=== PATIENT | female | born 1980 | race African-American/Black ===

== ENCOUNTER 2017-05-02 23:25 | Emergency (ER) | payer MEDICAID ==
[~2017-05-02] VITALS: Ht 165.1 cm; Wt 53.1 kg
[~2017-05-02 23:25] MED LIST: BACTRIM DS TAB1 EAC1 ORAL; BENADRYL25 MG ORAL; HYDROCODON-ACE1 EA15 ORAL; IBUPROFEN600 M1 PO; IBUPROFEN600 MG ORAL; KEFLEX500 MG ORAL; NKM; NORCO 5-325 TA1 EACH ORAL
[2017-05-02 23:40] VITALS: BP 116/74
[2017-05-03] MEDS ORDERED: POLYTRIM OP SOL10 ML OPHTHALM (00:15)
[2017-05-03] MEDS ORDERED: IBUPROFEN600 MG ORAL (00:15)
--- NOTE | 2017-05-03 00:16 | Emergency Room Report ---
History of Present Illness General Chief Complaint: Eye Problems Source: Patient, Medical Record Present Illness HPI Is a 36 year female with no significant past medical history. She presents with 2 complaints. The first is that she has itchy watery eyes the last several days. Puffiness. Worse with rubbing it. Left greater than right. No discharge. No trauma. Pain is 7/10. Second complaint is that she fell about 2 weeks ago the right eye. Now with shoulder pain. Worse with movement. No loss of consciousness. No deformity. Allergies: Coded Allergies: Cat Dander (Verified Allergy, Unknown, 04/06/16) Patient History Past Medical History: see triage record, old chart reviewed Past Surgical History: none Pertinent Family History: none Social History: Denies: smoking Last Menstrual Period: 04/11/17 Now: No Immunizations: other Reviewed Nursing Documentation: PMH: Agreed, PSxH: Agreed Nursing Documentation-PMH Past Medical History: No History, Except For Hx Asthma: Yes Review of Systems Eye: Reports: eye pain, tearing, Denies: blurred vision ENT: Denies: ear pain, nose congestion, throat swelling Respiratory: Denies: cough, shortness of breath Cardiovascular: Denies: chest pain, palpitations Gastrointestinal: Denies: abdominal pain, diarrhea, nausea, vomiting Musculoskeletal: Reports: joint pain, Denies: back pain Skin: Denies: rash Neurological: Denies: headache, numbness Endocrine: Denies: increased thirst, increased urine Hematologic/Lymphatic: Denies: easy bruising All Other Systems: negative except mentioned in HPI Physical Exam Vital Signs Date Time Temp Pulse Resp B/P Pulse Ox O2 Delivery O2 Flow Rate FiO2 05/02/17 23:32 97.9 73 18 116/74 97 Room Air vitals normal Sp02 EP Interpretation: reviewed, normal General Appearance: well appearing, no apparent distress, alert Head: normocephalic, atraumatic Eyes: bilateral eye EOMI, bilateral eye PERRL, bilateral eye other - injection b/l conjunctiva ENT: hearing grossly normal, normal pharynx Neck: full range of motion, supple, no meningismus Respiratory: chest non-tender, lungs clear, normal breath sounds Cardiovascular #1: regular rate, rhythm, no murmur Gastrointestinal: normal bowel sounds, non tender, no mass, no organomegaly, no bruit, non-distended Musculoskeletal: back normal, gait/station normal, normal range of motion, other - Rt shoulder pain Psychiatric: mood/affect normal Skin: warm/dry Medical Decision Making Diagnostic Impression: Primary Impression: Conjunctivitis Qualified Codes: H10.9 - Unspecified conjunctivitis Additional Impression: Contusion of shoulder, right ER Course Patient presents with conjunctivitis. Most likely viral in nature. Could be allergic versus bacterial. No evidence of proptosis. No evidence of cellulitis. As far as her shoulder, there is no evidence any fracture dislocation. Other X-Ray Diagnostic Results Other X-Ray Diagnostic Results : X-Ray ordered: Rt shoulder # of Views/Limited Vs Complete: 3 View Indication: Pain EP Interpretation: Yes Interpretation: no dislocation, no soft tissue swelling, no fractures Impression: No acute disease Interpreting ER Provider: Electronically signed by Mohinder Mandel MD Last Vital Signs Date Time Temp Pulse Resp B/P Pulse Ox O2 Delivery O2 Flow Rate FiO2 05/02/17 23:32 97.9 73 18 116/74 97 Room Air Status: improved Disposition: HOME, SELF-CARE Condition: Stable Scripts Ibuprofen* (MOTRIN*) 600 Mg Tablet 600 MG ORAL Q8H Y for For Pain, #30 TAB 0 Refills Prov: MOHINDER MANDEL M.D. 05/03/17 Polymyxin/Trimethoprim (Polytrim Eye Drops) 10 Ml Drops 2 DROP OPHTHALM THREE TIMES A DAY, #1 EA Instill in affected eye for 7 days Prov: MOHINDER MANDEL M.D. 05/03/17 Referrals: [facility],REFERRING (PCP) Patient Instructions: Bacterial Conjunctivitis, Yrak-[id number] Additional Instructions: Followup with your DrTa in 7 days. Return if worse. MOHINDER MANDEL M.D. May 03, 2017 00:16
[2017-05-03 00:24] VITALS: BP 116/74
--- NOTE | 2017-05-03 08:42 | Diagnostic Imaging Report ---
Indications: Right shoulder trauma, pain Technique: 3 views right shoulder. Findings: Comparison: None No fracture, dislocation, joint space widening , surrounding soft tissue swelling/foreign body/gas, or other acute changes are identified. IMPRESSION: No evidence of acute injury to the right shoulder.
== END 2017-05-03 00:24 | disposition home or self-care (01) ==
LOC: EMR 23:56
DX: H10.9 Unspecified conjunctivitis (principal); S40.011A Contusion of right shoulder, initial encounter; W19.XXXA Unspecified fall, initial encounter; Y92.89 Other specified places as the place of occurrence of the external cause; J45.909 Unspecified asthma, uncomplicated
CPT/HCPCS: 99284

== ENCOUNTER 2017-06-12 16:18 | Emergency (ER) | payer MEDICAID, OTHER ==
[~2017-06-12] VITALS: Ht 154.9 cm; Wt 53.5 kg
[~2017-06-12 16:18] MED LIST changes: +POLYTRIM OP SOL10 ML OPHTHALM
--- NOTE | 2017-06-12 16:48 | Emergency Room Report ---
History of Present Illness General Chief Complaint: Abdominal Pain Present Illness HPI 36-year-old female presents to the emergency department complaining of 8 out of 10 in severity lower midline pubic pain with associated nausea and diarrhea x2 days denies fevers or chills. Patient denies vaginal discharge. Patient denies , states she had normal cycle last month and is due for her cycle between today and the . Patient denies frequency, urgency, dysuria or adnexal tenderness. Patient denies palpable tender lymph nodes, or rash. Pt. reports hx of ovarian cysts. Denies CP, Palpitations, LOC, AMS, dizziness , Changes in Vision, Sensation, paresthesias, or a sudden severe headache. Allergies: Coded Allergies: Cat Dander (Verified Allergy, Unknown, 04/06/16) Patient History Past Medical History: see triage record Past Surgical History: none Pertinent Family History: none Last Menstrual Period: 05/12/17 Now: No - not sure : 8 Para: 7 Reviewed Nursing Documentation: PMH: Agreed, PSxH: Agreed Nursing Documentation-PMH Hx Asthma: Yes Review of Systems All Other Systems: negative except mentioned in HPI Physical Exam Vital Signs Date Time Temp Pulse Resp B/P (MAP) Pulse Ox O2 Delivery O2 Flow Rate FiO2 06/12/17 16:37 99.0 69 16 118/74 99 Room Air Sp02 EP Interpretation: reviewed, normal General Appearance: no apparent distress, alert, GCS 15, non-toxic Head: normocephalic, atraumatic Eyes: bilateral eye normal inspection, bilateral eye PERRL ENT: hearing grossly normal, normal pharynx, no angioedema, normal voice Neck: full range of motion, supple/symm/no masses Respiratory: chest non-tender, lungs clear, normal breath sounds, speaking full sentences Cardiovascular #1: regular rate, rhythm, no edema Gastrointestinal: normal bowel sounds, soft, no guarding, no rebound, tenderness - suprapubic TTP midline, no adnexal ttp Rectal: deferred Genitourinary: normal inspection, no CVA tenderness Musculoskeletal: back normal, gait/station normal, normal range of motion, non- tender, no calf tenderness Neurologic: alert, oriented x3, responsive, motor strength/tone normal, sensory intact, speech normal Psychiatric: judgement/insight normal, memory normal, mood/affect normal, no suicidal/homicidal ideation Reflexes: 4+ bicep (R), 4+ bicep (L), 4+ tricep (R), 4+ tricep (L), 4+ knee (R) , 4+ knee (L) Skin: normal color, no rash, warm/dry, well hydrated Lymphatic: no adenopathy Medical Decision Making PA Attestation Dr. Egan is my supervising Physician whom patient management has been discussed with. Diagnostic Impression: Primary Impression: Positive test Additional Impression: Twin in first trimester Qualified Codes: O30.001 - Twin , unspecified number of placenta and unspecified number of amniotic sacs, first trimester ER Course 36-year-old female presents to the emergency department complaining of 8 out of 10 in severity lower midline pubic pain with associated nausea and diarrhea x2 days denies fevers or chills. Patient denies vaginal discharge. Patient denies , states she had normal cycle last month and is due for her cycle between today and the . Patient denies frequency, urgency, dysuria or adnexal tenderness. Patient denies palpable tender lymph nodes, or rash. Pt. reports hx of ovarian cysts. Denies CP, Palpitations, LOC, AMS, dizziness , Changes in Vision, Sensation, paresthesias, or a sudden severe headache. Ddx considered but are not limited to Diverticulitis, acute appendicitis, diarrhea,UC, PUD, GE, pancreatitis, gallstone, , Ovarian cysts, UTI, fibroid just to name a few. Vital signs: are WNL, pt. is afebrile H&PE are most consistent with GE or possible . ORDERS: -CBC, CMP, lipase: Unremarkable, electrolytes ok -Urine Hcg: Positive -UA: 173,531 -Type and Screen: -Vaginal US: TWIN IUP estimated at approx 9 weeks per US tech report. ED INTERVENTIONS: -- 1000NS, --zofran 4mg. IVP -Pt. able to tolerate oral fluids. DISCHARGE: At this time pt. is stable for d/c to home. Will provide printed patient care instructions, and any necessary prescriptions. Care plan and follow up instructions have been discussed with the patient prior to discharge. Labs Test 06/12/17 16:45 06/12/17 16:52 06/12/17 17:38 Urine Color Pale yellow Urine Appearance Clear Urine pH 5 (4.5-8.0) Urine Specific [place] 1.020 (1.005-1.035) Urine Protein Negative (NEGATIVE) Urine Glucose (UA) Negative (NEGATIVE) Urine Ketones Negative (NEGATIVE) Urine Occult Blood Negative (NEGATIVE) Urine Nitrite Negative (NEGATIVE) Urine Bilirubin Negative (NEGATIVE) Urine Urobilinogen Normal MG/DL (0.0-1.0) Urine Leukocyte Esterase 1+ (NEGATIVE) Urine RBC 0-2 /HPF (0 - 2) Urine WBC 0-2 /HPF (0 - 2) Urine Squamous Epithelial Cells Few /LPF (NONE/OCC) Urine Bacteria Few /HPF (NONE) Urine HCG, Qualitative Positive White Blood Count 8.8 K/UL (4.8-10.8) Red Blood Count 3.73 M/UL (4.20-5.40) Hemoglobin 12.7 G/DL (12.0-16.0) Hematocrit 35.7 % (37.0-47.0) Mean Corpuscular Volume 96 FL (80-99) Mean Corpuscular Hemoglobin 33.9 PG (27.0-31.0) Mean Corpuscular Hemoglobin Concent 35.4 G/DL (32.0-36.0) Red Cell Distribution Width 11.7 % (11.6-14.8) Platelet Count 212 K/UL (150-450) Mean Platelet Volume 7.3 FL (6.5-10.1) Neutrophils (%) (Auto) 69.5 % (45.0-75.0) Lymphocytes (%) (Auto) 22.3 % (20.0-45.0) Monocytes (%) (Auto) 5.0 % (1.0-10.0) Eosinophils (%) (Auto) 2.6 % (0.0-3.0) Basophils (%) (Auto) 0.5 % (0.0-2.0) Sodium Level 140 mEQ/L (135-145) Potassium Level 3.9 mEQ/L (3.4-4.9) Chloride Level 103 mEQ/L (98-107) Carbon Dioxide Level 23 mEQ/L (20-30) Anion Gap 14 (5-15) Blood Urea Nitrogen 8 mg/dL (7-23) Creatinine 0.6 mg/dL (0.5-0.9) Estimat Glomerular Filtration Rate > 60 mL/min (>60) Glucose Level 87 mg/dL (74-106) Calcium Level 9.6 mg/dL (8.6-10.2) Total Bilirubin 0.6 mg/dL (0.0-1.2) Aspartate Amino Transf (AST/SGOT) 10 U/L (5-40) Alanine Aminotransferase (ALT/SGPT) 8 U/L (3-33) Alkaline Phosphatase 39 U/L (35-104) Total Protein 7.4 g/dL (6.6-8.7) Albumin 4.3 g/dL (3.5-5.2) Globulin 3.1 g/dL Albumin/Globulin Ratio 1.3 (1.0-2.7) Lipase 23 U/L (< 60) Human Chorionic Gonadotropin, Quant [id number] mIU/mL Last Vital Signs Date Time Temp Pulse Resp B/P (MAP) Pulse Ox O2 Delivery O2 Flow Rate FiO2 06/12/17 16:37 99.0 69 16 118/74 99 Room Air Disposition: HOME, SELF-CARE Condition: Stable Scripts Metoclopramide Hcl* (REGLAN*) 10 Mg Tablet 10 MG ORAL THREE TIMES A DAY Y for Nausea & Vomiting, #20 TAB Prov: Kelly Jolley 06/12/17 Patient Instructions: Abdominal Pain During , [id number] Additional Instructions: Take medications as directed. Follow up with a OBGYN in 3-5 days , even if your symptoms have resolved. * * --Please review list of primary care clinics, if you do not already have a primary care provider Return sooner to ED if new symptoms occur, or current symptoms become worse. - Please note that this Emergency Department Report was dictated using Cash[employer]inellock[employer]ch binder technology software, occasionally this can lead to erroneous entry secondary to interpretation by the dictation equipment. Kelly Jolley Jun 12, 2017 16:48
[2017-06-12 16:56] VITALS: BP 118/74
[2017-06-12 17:06] LABS: BASOPHILS % (AUTO) 0.5 % (0.0-2.0); EOSINOPHILS % (AUTO) 2.6 % (0.0-3.0); LYMPHOCYTES % (AUTO) 22.3 % (20.0-45.0); MEAN CORPUSCULAR HEMOGLOBIN 33.9 PG (27.0-31.0); MEAN CORPUSCULAR HGB CONC 35.4 G/DL (32.0-36.0); MEAN CORPUSCULAR VOLUME 96 FL (80-99); MEAN PLATELET VOLUME 7.3 FL (6.5-10.1); NEUTROPHILS % (AUTO) 69.5 % (45.0-75.0); PLATELET COUNT 212 K/UL (150-450); RED BLOOD COUNT 3.73 M/UL (4.20-5.40); RED CELL DISTRIBUTION WIDTH 11.7 % (11.6-14.8); WHITE BLOOD COUNT 8.8 K/UL (4.8-10.8)
[2017-06-12 17:10] LABS: APPEARANCE,URINE CLEAR; KETONES,URINE NEGATIVE (NEGATIVE); LEUKOCYTE ESTERASE ,URINE 1+ (NEGATIVE); NITRITE,URINE NEGATIVE (NEGATIVE); PH,URINE 5 (4.5-8.0); PROTEIN,URINE NEGATIVE (NEGATIVE); UROBILINOGEN,URINE NORMAL MG/DL (0.0-1.0)
[2017-06-12 17:23] LABS: ALANINE AMINOTRANSFERASE 8 U/L (3-33); ALBUMIN/GLOBULIN RATIO 1.3 (1.0-2.7); ANION GAP 14 (5-15); ASPARTATE AMINO TRANSFERASE 10 U/L (5-40); CALCIUM 9.6 mg/dL (8.6-10.2); CARBON DIOXIDE 23 mEQ/L (20-30); CHLORIDE 103 mEQ/L (98-107); CREATININE 0.6 mg/dL (0.5-0.9); GLOMERULAR FILTRATION RATE > 60 mL/min (>60); HEMOLYSIS 3; LIPASE 23 U/L (< 60); POTASSIUM 3.9 mEQ/L (3.4-4.9); SODIUM 140 mEQ/L (135-145); TOTAL PROTEIN 7.4 g/dL (6.6-8.7)
[2017-06-12 17:25] LABS: RBC,URINE 0-2 /HPF (0 - 2); WBC,URINE 0-2 /HPF (0 - 2)
[2017-06-12 17:26] LABS: BACTERIA,URINE FEW /HPF; SQUAMOUS EPITHELIAL CELL,UR FEW /LPF (NONE/OCC)
[2017-06-12] MEDS ORDERED: REGLAN10 MG ORAL (19:27)
[2017-06-12 19:30] VITALS: BP 129/82
[2017-06-12 19:42] VITALS: BP 129/82
--- NOTE | 2017-06-13 10:41 | Diagnostic Imaging Report ---
Indication: PAIN Technique: Transabdominal and transvaginal images Comparison: 04/06/2016 Findings: Uterus measures 12.8 cm length by 7.5 cm AP. Within the endometrium there is a gestational sac, containing 2 poles and 2 amnions and tibial sacs. Fetus A demonstrates a crown-rump length of 24 mm, corresponding to an estimated gestational age of 9 weeks one day, demonstrates positive heart activity, heart and 163 beats for minute. Fetus B demonstrates a crown-rump length of 23 mm, corresponding to an estimated gestational age of 9 weeks zero days. Positive heart activity, heart rate 160 beats per minute. No subchorionic hemorrhage. Left ovary measures 3.5 cm length. Right ovary 3.1 cm length. Is no adnexal mass. No free cul-de-sac fluid Impression: 9 week twin viable intrauterine . No unusual features
== END 2017-06-12 19:42 | disposition home or self-care (01) ==
LOC: EMR 16:49
DX: O30.041 Twin pregnancy, dichorionic/diamniotic, first trimester (principal); Z3A.09 9 weeks gestation of pregnancy; O26.891 Other specified pregnancy related conditions, first trimester; R19.7 Diarrhea, unspecified; R11.0 Nausea; J45.909 Unspecified asthma, uncomplicated
CPT/HCPCS: 36415; 76802; 80053; 81003; 81025; 83690; 84702; 85025; 86850; 86900; 86901; 96374; 99284; J2405

== ENCOUNTER 2017-06-25 05:28 | Emergency (ER) | payer OTHER ==
[~2017-06-25 05:28] MED LIST changes: +REGLAN10 MG ORAL
== END 2017-06-25 05:40 | disposition left against medical advice (07) ==
LOC: EMR 05:40
DX: R25.2 Cramp and spasm (principal); Z53.21 Procedure and treatment not carried out due to patient leaving prior to being seen by health care provider
CPT/HCPCS: 99281

== ENCOUNTER 2018-01-07 18:16 | Emergency (ER) | payer MEDICAID, OTHER ==
[~2018-01-07] VITALS: Ht 152.4 cm; Wt 56.7 kg
[2018-01-07 18:58] VITALS: BP 126/88
[2018-01-07] MEDS ORDERED: DEBROX15 M1 RIGHT EAR (19:12)
--- NOTE | 2018-01-07 21:45 | Emergency Room Report ---
History of Present Illness General Chief Complaint: Earache Source: Patient, Medical Record Present Illness HPI Patient 37-year-old female who presented after increased difficulty with hearing. Patient reports having increased right ear fullness as well as some increased right ear pain. She reports having some increased ringing sensation. She denies any fever. She had recent upper respiratory congestion. She denies any vertigo or recent trauma Allergies: Coded Allergies: No Known Allergies (Unverified , 06/25/17) Patient History Past Medical History: see triage record Reviewed Nursing Documentation: PMH: Agreed; PSxH: Agreed Nursing Documentation-PMH Past Medical History: No History, Except For Hx Asthma: Yes Review of Systems All Other Systems: negative except mentioned in HPI Physical Exam Vital Signs Date Time Temp Pulse Resp B/P (MAP) Pulse Ox O2 Delivery O2 Flow Rate FiO2 01/07/18 18:26 98.3 74 18 126/88 95 Room Air 98.2 General Appearance: well appearing, no apparent distress, alert, GCS 15 Head: normocephalic, atraumatic ENT: hearing grossly normal, normal voice, other - right ear cerumen impaction Neck: full range of motion, supple Respiratory: no respiratory distress, speaking full sentences Gastrointestinal: normal inspection, normal bowel sounds, non tender, soft Musculoskeletal: normal inspection, no calf tenderness Neurologic: normal inspection, alert, oriented x3, normal gait Psychiatric: mood/affect normal Skin: no rash Medical Decision Making Diagnostic Impression: Primary Impression: Impacted cerumen of right ear ER Course Patient presented for ear pain. Differential diagnosis included was not limited to otitis media, malignant otitis externa, foreign body, cellulitis, mastoiditis, carotid dissection, myocardial infarction among others. Because of complexity of patient's case laboratory testing and imaging studies were ordered.The patient was noted evidence of cerumen impaction right ear. The patient declined the removal attempt. She is given prescription for Debrox The patient is advised to follow up with primary care doctor in 1-2 days. Patient is advised to return if any worsening condition or if any changes in status that are concerning. This report is dictated with Activity[employer]ero depalletizer operator software which may occasionally lead to discrepancies related to use of this software. Last Vital Signs Date Time Temp Pulse Resp B/P (MAP) Pulse Ox O2 Delivery O2 Flow Rate FiO2 01/07/18 19:20 98.2 18 126/88 95 Room Air 98.2 4/18 18:26 74 Status: improved Disposition: HOME, SELF-CARE Condition: Improved Scripts Carbamide Peroxide (DEBROX) 15 Ml Drops 5 DROP RIGHT EAR TWICE A DAY for 4 Days, ML 0 Refills Prov: Oscar Barber 01/07/18 Referrals: [facility],REFERRING (PCP) Patient Instructions: Cerumen Impaction Oscar Barber Jan 07, 2018 21:45
== END 2018-01-07 19:20 | disposition home or self-care (01) ==
LOC: EMR 19:00
DX: H61.21 Impacted cerumen, right ear (principal)
CPT/HCPCS: 99283

== ENCOUNTER 2018-09-12 19:34 | Emergency (ER) | payer MEDICAID ==
[~2018-09-12] VITALS: Ht 152.4 cm; Wt 49.9 kg
[~2018-09-12 19:34] MED LIST changes: +DEBROX15 M1 RIGHT EAR; +TESSALON PERLE100 MG ORAL
[2018-09-12 19:50] VITALS: BP 126/84
[2018-09-12 21:15] LABS: APPEARANCE,URINE CLEAR; BILIRUBIN, URINE NEGATIVE (NEGATIVE); GLUCOSE, URINE (UA) NEGATIVE (NEGATIVE); KETONES,URINE NEGATIVE (NEGATIVE); LEUKOCYTE ESTERASE ,URINE NEGATIVE (NEGATIVE); NITRITE,URINE NEGATIVE (NEGATIVE); PH,URINE 6.5 (4.5-8.0); PROTEIN,URINE NEGATIVE (NEGATIVE); UROBILINOGEN,URINE 1 MG/DL (0.0-1.0)
--- NOTE | 2018-09-12 21:22 | Emergency Room Report ---
History of Present Illness General Chief Complaint: Pelvic Pain Source: Patient Present Illness HPI Patient is a 38-year-old female who presented after increased the suprapubic pain. Patient had a gradual onset of symptoms with the past 3 days. Patient denies any dysuria. She reports having similar symptoms in the past. She reports this had become a lot worse. She had prior history of ovarian cysts but stated last time she had an ultrasound this was not present. She denies being . She reports having a recent normal menses. Allergies: Coded Allergies: No Known Allergies (Unverified , 06/25/17) Patient History Past Medical History: see triage record Last Menstrual Period: 09/01/18 Now: No Reviewed Nursing Documentation: PMH: Agreed; PSxH: Agreed Nursing Documentation-PMH Past Medical History: No Stated History Hx Asthma: Yes Review of Systems All Other Systems: negative except mentioned in HPI Physical Exam Vital Signs Date Time Temp Pulse Resp B/P (MAP) Pulse Ox O2 Delivery O2 Flow Rate FiO2 09/12/18 19:38 98.4 78 16 126/84 98 Room Air General Appearance: well appearing, no apparent distress, alert, GCS 15 Head: normocephalic, atraumatic ENT: hearing grossly normal, normal voice Neck: full range of motion, supple Respiratory: no respiratory distress, speaking full sentences Cardiovascular #1: normal inspection Gastrointestinal: normal inspection, normal bowel sounds, non tender, soft Genitourinary: os closed, other - vaginal discharge, cervical motion tenderness Musculoskeletal: normal inspection Neurologic: normal inspection, alert, oriented x3, responsive, piece cutter III-XII nml as tested, normal gait Psychiatric: mood/affect normal Skin: no rash Medical Decision Making Diagnostic Impression: Primary Impression: Pelvic pain ER Course Patient presented for pelvic pain. Differential diagnosis included was not limited to the pelvic inflammatory disease, ovarian cyst, ectopic among others. Patient has a benign exam and does not appear to require any further imaging or laboratory testing at this timePatient was noted to have moderate vaginal discharge associated with cervical motion tenderness on pelvic exam. Patient being empirically treated for pelvic inflammatory disease. Patient does not appear to be toxic this time. The patient was advised outpatient testing for other STI's. The patient does not appear to be unstable.The patient is advised to follow up with primary care doctor in 1-2 days. Patient is advised to return if any worsening condition or if any changes in status that are concerning. This report is dictated with [employer] stem threshing machine operator software which may occasionally lead to discrepancies related to use of this software. Labs Test 09/12/18 20:00 Urine Color Yellow Urine Appearance Clear Urine pH 6.5 (4.5-8.0) Urine Specific [place] 1.015 (1.005-1.035) Urine Protein Negative (NEGATIVE) Urine Glucose (UA) Negative (NEGATIVE) Urine Ketones Negative (NEGATIVE) Urine Blood 1+ (NEGATIVE) Urine Nitrite Negative (NEGATIVE) Urine Bilirubin Negative (NEGATIVE) Urine Urobilinogen 1 MG/DL (0.0-1.0) Urine Leukocyte Esterase Negative (NEGATIVE) Urine RBC 2-4 /HPF (0 - 2) Urine WBC 0-2 /HPF (0 - 2) Urine Squamous Epithelial Cells Few /LPF (NONE/OCC) Urine Bacteria Few /HPF (NONE) Urine HCG, Qualitative Negative (NEGATIVE) Last Vital Signs Date Time Temp Pulse Resp B/P (MAP) Pulse Ox O2 Delivery O2 Flow Rate FiO2 09/12/18 19:38 98.4 78 16 126/84 98 Room Air Status: improved Disposition: HOME, SELF-CARE Condition: Stable Scripts Ibuprofen* (MOTRIN*) 600 Mg Tablet 600 MG ORAL Q8H PRN for For Pain, #30 TAB 0 Refills Prov: Oscar Barber MD 09/12/18 Doxycycline Monohydrate* (DOXYCYCLINE MONOHYDRATE*) 100 Mg Capsule 100 MG ORAL Q12H, #14 CAP 0 Refills Prov: Oscar Barber MD 09/12/18 Oscar Barber MD Sep 12, 2018 21:22
[2018-09-12 21:23] LABS: COLOR,URINE YELLOW
[2018-09-12] MEDS ORDERED: DOXYCYCLINE MO100 MG ORAL (22:07)
[2018-09-12] MEDS ORDERED: IBUPROFEN600 MG ORAL (22:07)
[2018-09-12] MEDS ORDERED: Lidocaine 1% MPF 10mg/ml 5ml INJ ONE (22:15)
[2018-09-12 22:18] VITALS: BP 130/84
== END 2018-09-12 22:18 | disposition home or self-care (01) ==
LOC: EMR 20:05
DX: R10.2 Pelvic and perineal pain (principal); J45.909 Unspecified asthma, uncomplicated
CPT/HCPCS: 81003; 81025; 96372; 96374; 99284; J0696

== ENCOUNTER 2018-10-03 22:11 | Emergency (ER) | payer MEDICAID ==
[~2018-10-03] VITALS: Ht 152.4 cm; Wt 49.9 kg
[~2018-10-03 22:11] MED LIST changes: +DOXYCYCLINE MO100 MG ORAL
[2018-10-03 22:30] VITALS: BP 133/84
--- NOTE | 2018-10-03 22:30 | NUR ---
ED Nurse Note: pt walked in due to left lower abdominal pain that radiates to the left flank x 2 days. 10/10 pain. denies nausea, vomiting and diahhrea. pt urine is yello color, with no discomfort with urinating. additionally, pt states that she does not have an normal intake of hydration. no skin deformites noted. pt states she did not injur herself.
[2018-10-03] MEDS ORDERED: Ketorolac 30mg Inj IV ONE (23:15)
--- NOTE | 2018-10-03 23:26 | Emergency Room Report ---
History of Present Illness General Chief Complaint: Abdominal Pain Source: Patient Present Illness HPI Is a 38-year-old female with no significant past medical history other than asthma. She presents with chief complaint of left flank pain. Onset was relatively acute and occurred a few hours ago. Pain to the left side radiating to the groin. Pain is 9 out of 10. Unable to sleep on the pain. Never had this problem before. No hematuria. No discharge. No urinary complaint. Does have a family history of kidney stone. Allergies: Coded Allergies: No Known Allergies (Unverified , 06/25/17) Patient History Past Medical History: see triage record, old chart reviewed, asthma Past Surgical History: none Pertinent Family History: none Social History: Denies: smoking Last Menstrual Period: sep 26 2018 Now: No Immunizations: other Reviewed Nursing Documentation: PMH: Agreed; PSxH: Agreed Nursing Documentation-PMH Hx Asthma: Yes Review of Systems Eye: Denies: eye pain, blurred vision ENT: Denies: ear pain, nose congestion, throat swelling Respiratory: Denies: cough, shortness of breath Cardiovascular: Denies: chest pain, palpitations Gastrointestinal: Reports: abdominal pain; Denies: diarrhea, nausea, vomiting Musculoskeletal: Denies: back pain, joint pain Skin: Denies: rash Neurological: Denies: headache, numbness Endocrine: Denies: increased thirst, increased urine Hematologic/Lymphatic: Denies: easy bruising All Other Systems: negative except mentioned in HPI Physical Exam Vital Signs Date Time Temp Pulse Resp B/P (MAP) Pulse Ox O2 Delivery O2 Flow Rate FiO2 10/03/18 22:26 97.9 84 18 133/84 99 Room Air 10/03/18 22:30 99 vitals normal Sp02 EP Interpretation: reviewed, normal General Appearance: well appearing, no apparent distress, alert Head: normocephalic, atraumatic Eyes: bilateral eye PERRL, bilateral eye EOMI ENT: hearing grossly normal, normal pharynx Neck: full range of motion, supple, no meningismus Respiratory: chest non-tender, lungs clear, normal breath sounds Cardiovascular #1: regular rate, rhythm, no murmur Gastrointestinal: normal bowel sounds, non tender, no mass, no organomegaly, no bruit, non-distended Musculoskeletal: back normal, gait/station normal, normal range of motion Psychiatric: mood/affect normal Skin: warm/dry Medical Decision Making Diagnostic Impression: Primary Impression: Abdominal pain of unknown etiology ER Course Patient present with abdominal pain. Unknown etiology. No evidence of kidney stone, acute abdomen or obstruction. We'll discharge home. We'll treat symptomatically. CT/MRI/US Diagnostic Results CT/MRI/US Diagnostic Results : Imaging Test Ordered: CT Abdomen and pelvis Impression negative per radiologist Last Vital Signs Date Time Temp Pulse Resp B/P (MAP) Pulse Ox O2 Delivery O2 Flow Rate FiO2 10/03/18 22:30 84 18 Room Air 99 10/03/18 22:30 97.9 133/84 99 Status: improved Disposition: HOME, SELF-CARE Condition: Stable Scripts Ibuprofen* (MOTRIN*) 600 Mg Tablet 600 MG ORAL THREE TIMES A DAY, #30 TAB 0 Refills Prov: Mohinder Mandel MD 10/04/18 Hydrocodone/Acetaminophen 5-325* (HYDROCODONE/ACETAMINOPHEN 5-325*) 1 Each Tablet 1 TAB ORAL Q6H PRN for For Pain, #10 TAB 0 Refills Prov: Mohinder Mandel MD 10/04/18 Patient Instructions: Abdominal Pain, Adult Additional Instructions: follow-up with your DrTa in 2 to 3 days. Return if worse. Mohinder Mandel MD Oct 03, 2018 23:26
[2018-10-03 23:28] LABS: APPEARANCE,URINE CLEAR; BILIRUBIN, URINE NEGATIVE (NEGATIVE); COLOR,URINE PALE YELLOW; GLUCOSE, URINE (UA) NEGATIVE (NEGATIVE); KETONES,URINE 1+ (NEGATIVE); LEUKOCYTE ESTERASE ,URINE NEGATIVE (NEGATIVE); NITRITE,URINE NEGATIVE (NEGATIVE); PH,URINE 6 (4.5-8.0); PROTEIN,URINE NEGATIVE (NEGATIVE); UROBILINOGEN,URINE NORMAL MG/DL (0.0-1.0)
[2018-10-03 23:34] LABS: ANION GAP 8 mmol/L (5-15); BLOOD UREA NITROGEN 14 mg/dL (7-18); CALCIUM 9.3 MG/DL (8.5-10.1); CARBON DIOXIDE 28 MMOL/L (21-32); CHLORIDE 104 MMOL/L (98-107); CREATININE 0.9 MG/DL (0.55-1.30); POTASSIUM 4.2 MMOL/L (3.5-5.1); SODIUM 139 MMOL/L (136-145)
[2018-10-03 23:39] LABS: BASOPHILS % (AUTO) 1.1 % (0.0-2.0); EOSINOPHILS % (AUTO) 4.9 % (0.0-3.0); HEMATOCRIT 36.4 % (37.0-47.0); HEMOGLOBIN 12.6 G/DL (12.0-16.0); LYMPHOCYTES % (AUTO) 30.7 % (20.0-45.0); MEAN CORPUSCULAR VOLUME 94 FL (80-99); MONOCYTES % (AUTO) 5.9 % (1.0-10.0); NEUTROPHILS % (AUTO) 57.4 % (45.0-75.0); PLATELET COUNT 239 K/UL (150-450); RED BLOOD COUNT 3.87 M/UL (4.20-5.40); RED CELL DISTRIBUTION WIDTH 12.2 % (11.6-14.8); WHITE BLOOD COUNT 8.8 K/UL (4.8-10.8)
--- NOTE | 2018-10-03 23:48 | Diagnostic Imaging Report ---
EXAM: CT Abdomen and Pelvis Without Intravenous Contrast CLINICAL HISTORY: ABDOMINAL PAIN TECHNIQUE: Axial computed tomography images of the abdomen and pelvis without intravenous contrast. CTDI is 0.15, 10.99 mGy and DLP is 535 mGy-cm. One or more of the following dose reduction techniques were used: automated exposure control, adjustment of the mA and/or kV according to patient size, use of iterative reconstruction technique. COMPARISON: 02/14/2014 FINDINGS: Lung bases: Unremarkable. No mass. No consolidation. ABDOMEN: Liver: Unremarkable. Gallbladder and bile ducts: Unremarkable. No calcified stones. Pancreas: Unremarkable. Spleen: Unremarkable. Adrenals: Unremarkable. Kidneys and ureters: Unremarkable. No obstructing stones. No hydronephrosis. Stomach and bowel: Unremarkable. Bowel is nondilated. PELVIS: Appendix: High density material is present in the nondilated appendix. No significant periappendiceal inflammatory change. Bladder: Unremarkable. No stones. Reproductive: Unremarkable as visualized. ABDOMEN and PELVIS: Intraperitoneal space: Unremarkable. No free air. Bones/joints: No acute osseous abnormality. Soft tissues: Unremarkable. Vasculature: Unremarkable. No abdominal aortic aneurysm. Lymph nodes: Unremarkable. IMPRESSION: No acute findings.
[2018-10-03 23:58] VITALS: BP 130/82
[2018-10-04] MEDS ORDERED: Morphine Sulfate 4mg/ml Inj (IV/IM USE ONLY) IVP ONE
[2018-10-04] MEDS ORDERED: IBUPROFEN600 MG ORAL (00:18)
[2018-10-04] MEDS ORDERED: HYDROCODON-ACE1 EA15 ORAL (00:18)
--- NOTE | 2018-10-04 00:24 | NUR ---
ED Nurse Note: Pt is DC per MD orders, all pt status, condition, and vital signs are reported to MD prior to DC. pt ID band removed. pt is alert and oriented times 4. no skin issues noted in ER. pt is instructed to follow up with primary MD prior to DC. pt has left with all belongings. pt left with DC notes. pt was able to teach back DC notes. pt is able to ambuate with steady gait. PT IV removed.
[2018-10-04 00:25] VITALS: BP 128/80
== END 2018-10-04 00:32 | disposition home or self-care (01) ==
LOC: EMR 22:45
DX: R10.9 Unspecified abdominal pain (principal); J45.909 Unspecified asthma, uncomplicated
CPT/HCPCS: 36415; 74176; 80048; 80307; 81003; 81025; 85025; 96374; 96375; 99284; J1885; J2270; J2405

== ENCOUNTER 2019-10-03 17:22 | Emergency (ER) | payer BC, MEDICAID ==
[~2019-10-03] VITALS: Ht 152.4 cm; Wt 59.0 kg
[~2019-10-03 17:22] MED LIST changes: +NITROFURANTOIN100 M2 ORAL; +ONDANSETRON ODT4 MG BC; +PHENAZOPYRIDIN100 MG ORAL
--- NOTE | 2019-10-03 17:44 | NUR ---
ED Nurse Note: Patient walked into ED from home c/o spotting small amoung and cramping on the lower abdomen since this morning. patient reports s/p fall on 10/02. patient denies any other injury. patient is a/o x4 ambulatory, breathing unlabored and even. daughters at bedside. patient reports G10, P10.
--- NOTE | 2019-10-03 17:45 | NUR ---
ED Nurse Note: patient reports she fell on her abdomen, as she was walking up the stairs.
[2019-10-03] MEDS ORDERED: Acetaminophen 500mg (ES) tab ORAL ONE (18:15)
[2019-10-03 18:33] LABS: APPEARANCE,URINE CLEAR; BILIRUBIN, URINE NEGATIVE (NEGATIVE); GLUCOSE, URINE (UA) NEGATIVE (NEGATIVE); KETONES,URINE NEGATIVE (NEGATIVE); LEUKOCYTE ESTERASE ,URINE NEGATIVE (NEGATIVE); NITRITE,URINE NEGATIVE (NEGATIVE); PH,URINE 5 (4.5-8.0); PROTEIN,URINE 1+ (NEGATIVE); UROBILINOGEN,URINE NORMAL MG/DL (0.0-1.0)
[2019-10-03 18:39] LABS: COLOR,URINE YELLOW
[2019-10-03 18:41] LABS: BASOPHILS % (AUTO) 0.8 % (0.0-2.0); EOSINOPHILS % (AUTO) 3.8 % (0.0-3.0); HEMATOCRIT 34.9 % (37.0-47.0); HEMOGLOBIN 12.2 G/DL (12.0-16.0); LYMPHOCYTES % (AUTO) 23.8 % (20.0-45.0); MEAN CORPUSCULAR VOLUME 95 FL (80-99); MONOCYTES % (AUTO) 6.8 % (1.0-10.0); NEUTROPHILS % (AUTO) 64.8 % (45.0-75.0); PLATELET COUNT 237 K/UL (150-450); RED BLOOD COUNT 3.69 M/UL (4.20-5.40); RED CELL DISTRIBUTION WIDTH 10.9 % (11.6-14.8)
[2019-10-03 18:46] LABS: ANION GAP 10 mmol/L (5-15); BLOOD UREA NITROGEN 13 mg/dL (7-18); CALCIUM 9.1 MG/DL (8.5-10.1); CARBON DIOXIDE 25 MMOL/L (21-32); CHLORIDE 105 MMOL/L (98-107); CREATININE 0.6 MG/DL (0.55-1.30); POTASSIUM 3.9 MMOL/L (3.5-5.1); SODIUM 140 MMOL/L (136-145)
[2019-10-03 18:50] LABS: ALANINE AMINOTRANSFERASE 16 U/L (12-78); ALBUMIN 3.3 G/DL (3.4-5.0); ALBUMIN/GLOBULIN RATIO 0.9 (1.0-2.7); ALKALINE PHOSPHATASE 37 U/L (46-116); ASPARTATE AMINO TRANSFERASE 15 U/L (15-37); BILIRUBIN,TOTAL 0.1 MG/DL (0.2-1.0)
--- NOTE | 2019-10-03 18:50 | NUR ---
ED Nurse Note: patient taken to U/S
--- NOTE | 2019-10-03 19:28 | NUR ---
HAND-OFF: Report given to Merced ALEXANDER.
[2019-10-03] MEDS ORDERED: TYLENOL325 MG ORAL (19:57)
--- NOTE | 2019-10-03 19:57 | Emergency Room Report ---
History of Present Illness General Chief Complaint: Complications Source: Patient Present Illness HPI 39-year-old female who is G 10 with a set of twins here complaining of abdominal cramping and vaginal spotting after falling on the stairs yesterday. Patient reports that she was going up the stairs and she felt dizzy and she fell on the stairs in the bottom of 1 of the stairs impacted her lower abdomen. Patient denies any loss of consciousness, head trauma, nausea vomiting and dizziness at this time. Reports that she last saw her CLOSING MANAGER a month ago and reports that she is 20 weeks however an ultrasound today showed that she is 16 weeks . Patient does not recall last menstrual period. Reports that she is compliant with taking vitamins. Denies chest pain , shortness of breath, palpitation, urinary frequency and urgency, vaginal discharge at this time. Denies vaginal clotting. Has not taken medication for symptom relief. Patient is sitting comfortably with stable vital signs. No signs of blunt trauma noted on abdomen. Allergies: Coded Allergies: No Known Allergies (Unverified , 06/25/17) Patient History Past Medical History: see triage record Past Surgical History: unable to obtain Pertinent Family History: none Last Menstrual Period: 04/2019 Now: Yes Immunizations: UTD Reviewed Nursing Documentation: PMH: Agreed; PSxH: Agreed Nursing Documentation-PMH Hx Asthma: Yes Review of Systems All Other Systems: negative except mentioned in HPI Physical Exam Vital Signs Date Time Temp Pulse Resp B/P (MAP) Pulse Ox O2 Delivery O2 Flow Rate FiO2 10/03/19 17:44 98.4 86 16 115/75 (88) 97 Room Air Sp02 EP Interpretation: reviewed, normal General Appearance: no apparent distress, alert, GCS 15, non-toxic Head: normocephalic, atraumatic Eyes: bilateral eye normal inspection, bilateral eye PERRL ENT: hearing grossly normal, normal pharynx, no angioedema, normal voice Neck: full range of motion, supple, thyroid normal, no meningismus, supple/symm /no masses Respiratory: chest non-tender, lungs clear, normal breath sounds, no rhonchi, no wheezing, speaking full sentences Cardiovascular #1: regular rate, rhythm, no edema, no murmur, normal capillary refill Gastrointestinal: non tender, soft, no mass, no peritonitis, no bruit, other - Gravid Rectal: deferred Genitourinary: no CVA tenderness Musculoskeletal: back normal, normal range of motion, no calf tenderness, gait/ station normal, non-tender Neurologic: alert, motor strength/tone normal, oriented x3, sensory intact, responsive, speech normal Psychiatric: judgement/insight normal, memory normal, mood/affect normal, no suicidal/homicidal ideation Skin: no rash, other - no eccymosis Lymphatic: no adenopathy Medical Decision Making PA Attestation Diagnosis and treatment plans were reviewed and discussed with my supervising physician Dr. Mercado Diagnostic Impression: Primary Impression: Spotting during ER Course 39-year-old female who is G 10 with a set of twins here complaining of abdominal cramping and vaginal spotting after falling on the stairs yesterday. Patient reports that she was going up the stairs and she felt dizzy and she fell on the stairs in the bottom of 1 of the stairs impacted her lower abdomen. Patient denies any loss of consciousness, head trauma, nausea vomiting and dizziness at this time. Reports that she last saw her CLOSING MANAGER a month ago and reports that she is 20 weeks however an ultrasound today showed that she is 16 weeks . Patient does not recall last menstrual period. Reports that she is compliant with taking vitamins. Denies chest pain , shortness of breath, palpitation, urinary frequency and urgency, vaginal discharge at this time. Denies vaginal clotting. Has not taken medication for symptom relief. Patient is sitting comfortably with stable vital signs. No signs of blunt trauma noted on abdomen. Ddx considered but are not limited to: Threatened , ectopic , blunt trauma, spotting urine , abdominal pain during , Vital signs: are WNL, pt. is afebrile H&PE are most consistent with: Spotting and abdominal pain during ORDERS: OB ultrasound, CBC, CMP, UA, beta-hCG, type and screen, Tylenol ED INTERVENTIONS: NS bolus, Tylenol DISCHARGE: At this time pt. is stable for d/c to home. Will provide printed patient care instructions, and any necessary prescriptions. Care plan and follow up instructions have been discussed with the patient prior to discharge. Patient to follow-up with primary care provider and follow-up with CLOSING MANAGER in 24 to 48 hours, if worsening symptoms return to the emergency room. Patient reports that she did not eat very well yesterday and reports that it might be a cause of feeling faint. Also advised her to return to the emergency room if feeling more faint at this time was ruled out. CT/MRI/US Diagnostic Results CT/MRI/US Diagnostic Results : Imaging Test Ordered: OB ultrasound Impression heart rate 147, 16 weeks, no subchorionic hemorrhage, no signs of hemorrhage or blunt trauma Last Vital Signs Date Time Temp Pulse Resp B/P (MAP) Pulse Ox O2 Delivery O2 Flow Rate FiO2 10/03/19 17:44 98.4 86 16 115/75 (88) 97 Room Air Disposition: HOME, SELF-CARE Condition: Stable Scripts Acetaminophen (Tylenol) 325 Mg Tablet 325 MG ORAL Q6H PRN for Prn Pain/Headache/Temp > 101, #30 TAB 0 Refills Prov: Andria Diaz 10/03/19 Referrals: NON PHYSICIAN (PCP) Patient Instructions: Abdominal Pain During Additional Instructions: Take medication as directed, follow-up with your primary care provider, follow- up with your CLOSING MANAGER in 24 to 48 hours, if worsening symptoms return to the emergency room. Andria Diaz Oct 03, 2019 19:57
--- NOTE | 2019-10-03 20:20 | NUR ---
ED Nurse Note: pt cleared to be d/c per ER provider, pt discharge and aftercare instruction w/ prescription provided, education done via discussion and handout, pt advised to follow up with pcp or return to ed if changes in condition, pt verbalized understanding and agrees with plan, left w/ all belongings accompanied by family, iv d/c and id band removed, vss.
[2019-10-03 20:29] VITALS: BP 118/70
--- NOTE | 2019-10-04 07:08 | Diagnostic Imaging Report ---
US OB 1st TRIMESTER: There is a single living intrauterine gestation measuring 16 weeks 6 days gestational age with estimated delivery of 03/13/20. heart rate measures 146 bpm. There is a normal amount of amniotic fluid. The placenta is posterior and appears intact. The cervix measures 3.4 cm.
== END 2019-10-03 20:29 | disposition home or self-care (01) ==
LOC: EMR 18:28
DX: O26.852 Spotting complicating pregnancy, second trimester (principal); Z3A.16 16 weeks gestation of pregnancy
CPT/HCPCS: 36415; 76801; 76805; 76830; 80053; 81003; 84702; 85025; 86850; 86900; 86901; 99284

== ENCOUNTER 2020-01-29 15:23 | Emergency (ER) | payer MEDICAID, OTHER ==
[~2020-01-29] VITALS: Ht 152.4 cm; Wt 65.3 kg
[~2020-01-29 15:23] MED LIST changes: +TYLENOL325 MG ORAL
--- NOTE | 2020-01-29 15:48 | Emergency Room Report ---
History of Present Illness General Chief Complaint: Complications Source: Patient Present Illness HPI 39-year-old female presents to the emergency department complaining of 8 out of 10 severity abdominal cramping with spotting at 33 weeks . Patient reports she began having cramping and spotting last night and reports cramping at a frequency of every 1-1/2 hours to an hour and 45 minutes. Patient reports that cramping has become more frequent to every 30 minutes. Patient is G 10 P9. Patient reports she was just seen last week by her HELP DESK CONSULTANT and was told everything is normal. Patient reports all previous normal vaginal deliveries without complications during . She denies vaginal discharge/mucus. She denies nausea or vomiting. She describes having lower pelvic fullness and denies pain in between episodes of cramping. She does not know what her blood type is but reports never having been told she requires any additional injections during or delivery. Allergies: Coded Allergies: No Known Allergies (Unverified , 06/25/17) COVID-19 Screening Contact w/high risk pt: No Recent Travel to affected area: No Experienced COVID-19 symptoms?: No Patient History Past Medical History: see triage record Past Surgical History: none Pertinent Family History: none Last Menstrual Period: na Now: Yes : 10 Para: 9 Reviewed Nursing Documentation: PMH: Agreed; PSxH: Agreed Nursing Documentation-PMH Past Medical History: No Stated History Hx Asthma: Yes Review of Systems All Other Systems: negative except mentioned in HPI Physical Exam Vital Signs Date Time Temp Pulse Resp B/P (MAP) Pulse Ox O2 Delivery O2 Flow Rate FiO2 01/29/20 15:26 98.2 89 18 105/66 (79) 97 Room Air Sp02 EP Interpretation: reviewed, normal General Appearance: no apparent distress, alert, GCS 15, non-toxic Head: normocephalic, atraumatic Eyes: bilateral eye normal inspection, bilateral eye PERRL ENT: hearing grossly normal, normal voice Neck: full range of motion Respiratory: lungs clear, normal breath sounds, speaking full sentences Cardiovascular #1: regular rate, rhythm, no edema Gastrointestinal: normal bowel sounds, non tender, soft, other - gravid Genitourinary: normal inspection, no CVA tenderness, deferred - by pt. Musculoskeletal: normal range of motion, gait/station normal, non-tender Neurologic: alert, motor strength/tone normal, oriented x3, sensory intact, responsive, speech normal Psychiatric: judgement/insight normal Skin: normal color Medical Decision Making PA Attestation Dr. Campbell is my supervising Physician whom patient management has been discussed with. Diagnostic Impression: Primary Impression: Abdominal cramping affecting Additional Impressions: Vaginal bleeding in LUCY (amniotic fluid index) decreased ER Course 39-year-old female presents to the emergency department complaining of 8 out of 10 severity abdominal cramping with spotting at 33 weeks . Patient reports she began having cramping and spotting last night and reports cramping at a frequency of every 1-1/2 hours to an hour and 45 minutes. Patient reports that cramping has become more frequent to every 30 minutes. Patient is G 10 P9. Patient reports she was just seen last week by her HELP DESK CONSULTANT and was told everything is normal. Patient reports all previous normal vaginal deliveries without complications during . She denies vaginal discharge/mucus. She denies nausea or vomiting. She describes having lower pelvic fullness and denies pain in between episodes of cramping. She does not know what her blood type is but reports never having been told she requires any additional injections during or delivery. Ddx considered but are not limited to: Fibroid, ectopic , Fibroid, Spontaneous ,placenta previa, placenta abruptio Vital signs: are WNL, pt. is afebrile Pelvic Exam: deferred by pt. H&PE are most consistent with: Early labor, demise, placenta abruptio, spotting , Inevitable , Spontaneous ORDERS: -UA:Unremarkable - Blood/RH type and screen- see attached labs ( A POSITIVE ). -Pelvic US complete- LUCY 92.20 FHR 152 ED INTERVENTIONS: -- D/w pt. that due to presenting symptoms above 20 wks gestation it is necessary to be evaluated by OB and have monitoring performed. D/w pt. that we will facilitate transfer to appropriate facility to complete her work-up /evaluation. Pt. verbalized her understanding of need to have additional monitoring and evaluation performed by OB facility. Pt. verbalized that she does not wish to take the transport that will be facilitated. Pt. requests transport via private vehicle. D/w pt. that this is not recommended and she has the right to choose however she would be leaving AMA. Explained AMA process , risks involved and urgent need to finish full evaluation. DISPOSITION: Pt. Requests AMA. - At this time the patient is requesting to leave AGAINST MEDICAL ADVICE. I believe that this patient has the capacity to make decisions on her own. I discussed with the patient the risks of leaving AMA and not utilizing proper transport to appropriate . Some of these risks include delay in diagnosis and treatment, as well as worsening of symptoms, organ damage, and permanent disability or even . After discussing these risks with the patient. She continues to express her want and intention to leave AGAINST MEDICAL ADVICE. I encouraged the patient to return at any time, and that she will be welcome here in the emergency department to continue medical management. CT/MRI/US Diagnostic Results CT/MRI/US Diagnostic Results : Imaging Test Ordered: OB US Impression "IMPRESSION: 1. Single viable intrauterine gestation consistent with 32 week 3 day . 2. heart rate 152 bpm. 3. Transverse lie, head to the maternal left. 4. No acute abnormality seen. 5. Substantial, consistent discrepancy of dates between LMP and ultrasound age was seen on comparison study from 10/03/2019; given consistent ultrasound average dating, ultrasound dates are likely accurate. 6. Globally small size could be at least partially explained due to the discrepancy. 7. Average ultrasound age 32 weeks 3 days; EGA by LMP 36 weeks 5 days; this is substantially discrepant. 8. Ultrasound EDC 03/22/2020, EDC by LMP 02/21/2020; this is substantially discrepant." Per official radiology report- Please see report for specific details. Last Vital Signs Date Time Temp Pulse Resp B/P (MAP) Pulse Ox O2 Delivery O2 Flow Rate FiO2 01/29/20 15:26 98.2 89 18 105/66 (79) 97 Room Air Disposition: AGAINST MEDICAL ADVICE Condition: Unknown Patient Instructions: Abdominal Pain During , [id number] Additional Instructions: You are leaving AMA, before complete evaluation by OB facility/ monitoring and coordinated inter-facility transport is complete. This can cause delayed diagnosis as well as treatment, and ultimately leading up to worsening of symptoms, damage to organs, permanent disability or even . You are encouraged to return to the ER at any time if you want to continue your evaluation and have us arrange your transport to OB facility. You are blood Type ( A POSITIVE ) Kelly Jolley Jan 29, 2020 15:48
[2020-01-29 16:09] LABS: APPEARANCE,URINE SLIGHTLY CLOUDY; BILIRUBIN, URINE NEGATIVE (NEGATIVE); COLOR,URINE YELLOW; GLUCOSE, URINE (UA) NEGATIVE (NEGATIVE); KETONES,URINE 2+ (NEGATIVE); LEUKOCYTE ESTERASE ,URINE 1+ (NEGATIVE); NITRITE,URINE NEGATIVE (NEGATIVE); PH,URINE 5 (4.5-8.0); PROTEIN,URINE NEGATIVE (NEGATIVE); UROBILINOGEN,URINE NORMAL MG/DL (0.0-1.0)
[2020-01-29 17:30] VITALS: BP 118/74
--- NOTE | 2020-01-29 17:47 | Diagnostic Imaging Report ---
EXAM: US Second or Third Trimester , Transabdominal and Transvaginal CLINICAL HISTORY: PAIN TECHNIQUE: Real-time transabdominal and endovaginal obstetrical ultrasound of the maternal pelvis and a second or third trimester with image documentation. Endovaginal imaging was used for better evaluation of the fetus and adnexa. COMPARISON: 10/03/2019 FINDINGS: Fetus: Single viable intrauterine gestation consistent with 32 week 3 day . Globally small size could be at least partially explained due to the discrepancy. Globally small fetus as below with normal relative biometrics, potentially representing normal ratio developmentally small fetus for discrepant dates. Relative biometrics: Heart rate: heart rate 152 bpm. Presentation: Transverse lie, head to the maternal left. Placenta: Unremarkable. No abruption. Amniotic fluid: LUCY 9 cm, 12th percentile, normal range. Anatomy: This was not performed as an anatomic survey. Intracranial/face anatomy not seen. Spinal anatomy not seen. Abdominal anatomy not seen. Extremities not seen. Four-chamber heart not seen. Umbilical cord seen. BIOMETRICS Gestational age: Average ultrasound age 32 weeks 3 days; EGA by LMP 36 weeks 5 days; this is substantially discrepant. EDC: Ultrasound EDC 03/22/2020, EDC by LMP 02/21/2020; this is substantially discrepant. SHARONA: See above EFW: EFW 1996 g, 4 lbs. 6 oz., below 5th percentile BPD: BPD 80 mm, 32 weeks 0 days. Below 5th percentile HC: HC 294 mm, 32 weeks 3 days below 5th percentile AC: AC 285 mm, 6 percentile, 32 weeks 4 days FL: FL 63 mm, 32 weeks 5 days, MATERNAL: Uterus: Unremarkable. No myometrial mass. Cervix: Cervix 4.3 cm, closed. Free fluid: No free fluid. Other findings: This discrepancy of dates between LMP and ultrasound age is consistent with that seen on comparison study from 10/03/2019; given consistent ultrasound average dating, ultrasound dates are likely accurate. FL/AC 22.3 (normal range 20.1-24) HC/AC 1.03 (normal range 0. 91-1.13) FL/BPD 79.4 (normal range 72.3-88.4) IMPRESSION: 1. Single viable intrauterine gestation consistent with 32 week 3 day . 2. heart rate 152 bpm. 3. Transverse lie, head to the maternal left. 4. No acute abnormality seen. 5. Substantial, consistent discrepancy of dates between LMP and ultrasound age was seen on comparison study from 10/03/2019; given consistent ultrasound average dating, ultrasound dates are likely accurate. 6. Globally small size could be at least partially explained due to the discrepancy. 7. Average ultrasound age 32 weeks 3 days; EGA by LMP 36 weeks 5 days; this is substantially discrepant. 8. Ultrasound EDC 03/22/2020, EDC by LMP 02/21/2020; this is substantially discrepant. <MYCVCSECTION> Communications: 01/29/20 17:47 Call Doctor Regarding Other, called PANDA BRANCH on 01/28 17:47 (-07:00)
== END 2020-01-29 17:30 | disposition left against medical advice (07) ==
LOC: EMR 15:42
DX: O26.93 Pregnancy related conditions, unspecified, third trimester (principal); O41.8X30 Other specified disorders of amniotic fluid and membranes, third trimester, not applicable or unspecified; Z3A.32 32 weeks gestation of pregnancy; O26.853 Spotting complicating pregnancy, third trimester
CPT/HCPCS: 36415; 76805; 76817; 81003; 86900; 86901; Z7502; 99284

== ENCOUNTER 2020-07-09 15:28 | Emergency (ER) | payer MEDICAID ==
[~2020-07-09] VITALS: Ht 152.4 cm; Wt 54.4 kg
[2020-07-09 15:55] VITALS: BP 122/79
--- NOTE | 2020-07-09 15:55 | NUR ---
ED Nurse Note: PT walked in to ed for C/O redness to left eye x 1 week. reports itchiness. denies any drainage
[2020-07-09] MEDS ORDERED: Fluorescein Strips LEFT EYE ONE (16:15)
--- NOTE | 2020-07-09 16:28 | Emergency Room Report ---
History of Present Illness General Chief Complaint: Eye Problems Source: Patient Present Illness HPI 39-year-old female with no known significant medical history here complaining of Pruritus/pain in left thigh x1 week. Denies any injury, photophobia, blurry vision. Has full vision. Denies any trauma, headache, congestion. Has been taking [id number]-[id number] olopatadine. Reports another right eye is also somewhat bothering her. Complains of minimal discharge in the morning. Denies wearing contact lenses. Denies glasses. Allergies: Coded Allergies: No Known Allergies (Unverified , 06/25/17) COVID-19 Screening Contact w/high risk pt: No Recent Travel to affected area: No Experienced COVID-19 symptoms?: No COVID-19 Testing performed HISTORIOGRAPHY TEACHER: No Patient History Past Medical History: see triage record Past Surgical History: none Pertinent Family History: none Last Menstrual Period: april 2020 Now: No Immunizations: UTD Reviewed Nursing Documentation: PMH: Agreed; PSxH: Agreed Nursing Documentation-PMH Past Medical History: No History, Except For Hx Asthma: Yes Review of Systems All Other Systems: negative except mentioned in HPI Physical Exam Vital Signs Date Time Temp Pulse Resp B/P (MAP) Pulse Ox O2 Delivery O2 Flow Rate FiO2 07/09/20 15:49 98.2 77 17 129/85 (100) 98 Room Air Sp02 EP Interpretation: reviewed, normal General Appearance: no apparent distress, alert, GCS 15, non-toxic Head: normocephalic, atraumatic Eyes: left eye other - Left conjunctiva injected no abrasion noted ENT: hearing grossly normal, normal pharynx, no angioedema, normal voice Neck: full range of motion, supple/symm/no masses Respiratory: chest non-tender, lungs clear, normal breath sounds, speaking full sentences Cardiovascular #1: regular rate, rhythm, no edema Gastrointestinal: normal bowel sounds, non tender, soft, non-distended, no guarding, no rebound Rectal: deferred Musculoskeletal: back normal Neurologic: alert, motor strength/tone normal, oriented x3, sensory intact, responsive, speech normal Psychiatric: judgement/insight normal, memory normal, mood/affect normal, no suicidal/homicidal ideation Skin: no rash Lymphatic: no adenopathy Medical Decision Making PA Attestation All diagnoses and treatment plans were reviewed and discussed with my supervising physician Dr. Jefferson Diagnostic Impression: Primary Impression: Bacterial conjunctivitis ER Course 39-year-old female with no known significant medical history here complaining of Pruritus/pain in left thigh x1 week. Denies any injury, photophobia, blurry vision. Has full vision. Denies any trauma, headache, congestion. Has been taking [id number]-cedpgzq olopatadine. Reports another right eye is also somewhat bothering her. Complains of minimal discharge in the morning. Denies wearing contact lenses. Denies glasses. Ddx considered but are not limited to: bacterial conjunctivitis, allergic c onjunctivitis, viral conjunctivitis, periorbital cellulitis, global trauma Vital signs: are WNL, pt. is afebrile H&PE are most consistent with: Bacterial conjunctivitis ORDERS: Ofloxacin ophthalmic, Benadryl ED INTERVENTIONS: I visualized the left eye with with fluorescein and tetracaine and no abrasion was noted no ulcerations noted DISCHARGE: At this time pt. is stable for d/c to home. Will provide printed patient care instructions, and any necessary prescriptions. Care plan and follow up instructions have been discussed with the patient prior to discharge. Patient take medication as directed, follow-up with primary doctor, preschool teacher, if worsening symptoms return Last Vital Signs Date Time Temp Pulse Resp B/P (MAP) Pulse Ox O2 Delivery O2 Flow Rate FiO2 07/09/20 15:49 98.2 77 17 129/85 (100) 98 Room Air Disposition: HOME, SELF-CARE Condition: Stable Scripts Diphenhydramine HCl (Benadryl) 25 Mg Capsule 25 MG PO BID, #14 CAP Prov: Andria Diaz 07/09/20 Ofloxacin (Ofloxacin) 5 Ml Drops 2 DROP OP Q6HR for 7 Days, #5 ML Prov: Andria Diaz 07/09/20 Patient Instructions: Bacterial Conjunctivitis, [id number] Additional Instructions: Take medication as directed, follow-up with your primary care provider and preschool teacher, if worsening symptoms return to Emergency Room Andria Diaz Jul 09, 2020 16:28
[2020-07-09] MEDS ORDERED: OFLOXACIN10 ML OP (16:30)
[2020-07-09] MEDS ORDERED: BENADRYL25 M3 PO (16:30)
[2020-07-09 16:46] VITALS: BP 122/82
--- NOTE | 2020-07-09 16:46 | NUR ---
ER DISCHARGE NOTE: Patient is cleared to be discharged per ERMD, pt is aox4, on room air, with stable vital signs. pt was given dc and prescription instructions, pt was able to verbalize understanding, pt id band removed without complications. pt is able to ambulate with steady gait. pt took all belongings.
== END 2020-07-09 16:45 | disposition home or self-care (01) ==
LOC: EMR 16:20
DX: H10.89 Other conjunctivitis (principal); J45.909 Unspecified asthma, uncomplicated
CPT/HCPCS: 99283

== ENCOUNTER 2020-07-20 15:38 | Emergency (ER) | payer MEDICAID ==
[~2020-07-20] VITALS: Ht 152.4 cm; Wt 54.4 kg
[~2020-07-20 15:38] MED LIST changes: +BENADRYL25 M3 PO; +OFLOXACIN10 ML OP
--- NOTE | 2020-07-20 16:11 | Emergency Room Report ---
History of Present Illness General Chief Complaint: General Complaint Source: Patient Present Illness HPI Patient presents with 2 weeks of feeling ball-like mass in the left lower quadrant that has been tender. At times it seems to pop out and then pop in. She complains of 5/10 pain when it is out and she pushes on it. Does not seem to be located to one spot. The pain radiates somewhat towards the mid line in the suprapubic area. She describes the pain is feeling somewhat like having had surgery. She denies any fever or dysuria. There is no nausea vomiting diarrhea or constipation. The patient delivered vaginally 5 months ago. She initially was breast-feeding but stopped several weeks ago. Her last menstruation was June 27. She does not believe she is at this time but is uncertain. She is not take any medication for the pain. There is no change in the skin in that area. Previously the patient had a 5 years ago. The patient denies vaginal discharge or vaginal bleeding. No upper respiratory symptomatology. No exposure to Covid positive contacts. No sore throat, chest pain, palpitations, shortness of breath, joint pain, sid hes, depression, anxiety, visual changes, dizziness, headache. 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 COVID-19 Screening: Negative COVID-19 COVID-19 Testing Source: Nasopharynx Patient History Past Medical History: see triage record Past Surgical History: Social History: Denies: smoking Social History Narrative from home - 7 yo and 5 mo Last Menstrual Period: 05/27/20 : 2 Para: 2 Reviewed Nursing Documentation: PMH: Agreed; PSxH: Agreed Nursing Documentation-PMH Past Medical History: No Stated History Hx Asthma: Yes Review of Systems All Other Systems: negative except mentioned in HPI Physical Exam Vital Signs Date Time Temp Pulse Resp B/P (MAP) Pulse Ox O2 Delivery O2 Flow Rate FiO2 07/20/20 15:51 97.0 88 14 113/74 (87) 98 Room Air Sp02 EP Interpretation: reviewed, normal General Appearance: well appearing, no apparent distress, GCS 15 Head: normocephalic Eyes: bilateral eye normal inspection, bilateral eye PERRL, bilateral eye EOMI ENT: moist mucus membranes Neck: supple Respiratory: lungs clear, normal breath sounds Cardiovascular #1: regular rate, rhythm Cardiovascular #2: 2+ radial (R) Gastrointestinal: normal inspection, normal bowel sounds, non tender, non- distended, no guarding, no rebound, tenderness - Left lower quadrant, no mass felt, other - Fullness in suprapubic area Genitourinary: no CVA tenderness, deferred - For ultrasound Musculoskeletal: back normal, normal range of motion, gait/station normal Neurologic: alert, oriented x3, grossly normal Psychiatric: mood/affect normal Skin: no rash, warm/dry, other - No striae Medical Decision Making Diagnostic Impression: Primary Impression: 14 weeks gestation of Additional Impression: Abdominal wall pain ER Course Patient presents with left lower quadrant abdominal wall mass that she has felt. Differential includes abdominal wall hernia, subcutaneous fibrosis, abscess amongst others. Clinically this appears more like a abdominal wall hernia by her history and exam. This will be evaluated with the ultrasound. In addition her menstruation is irregular and urine and urine will be obtained. The patient is given a dose of Tylenol. Labs unremarkable. Ultrasound reveals 14 weeks 3-day gestation with normal heart rate. Urinalysis clear. Discussed results with patient. Patient discomfort improved. Patient advised to follow-up with her GEOMETRY PROFESSOR. Patient stable for outpatient observation and treatment. Laboratory Tests Test 07/20/20 16:08 Urine Color Yellow Urine Appearance Slightly cloudy Urine pH 5 (4.5-8.0) Urine Specific [place] 1.025 (1.005-1.035) Urine Protein 1+ (NEGATIVE) H Urine Glucose (UA) Negative (NEGATIVE) Urine Ketones 1+ (NEGATIVE) H Urine Blood 1+ (NEGATIVE) H Urine Nitrite Negative (NEGATIVE) Urine Bilirubin Negative (NEGATIVE) Urine Urobilinogen 1 MG/DL (0.0-1.0) H Urine Leukocyte Esterase Negative (NEGATIVE) Urine RBC 0-2 /HPF (0 - 2) Urine WBC 0-2 /HPF (0 - 2) Urine Squamous Epithelial Cells Occasional /LPF Urine Bacteria Occasional /HPF (NONE) Urine Mucus Moderate /LPF (NONE/OCC) H Urine HCG, Qualitative Positive (NEGATIVE) CT/MRI/US Diagnostic Results CT/MRI/US Diagnostic Results : Imaging Test Ordered: pelvic ultrasound Impression 14-week 3-day intrauterine gestation with normal heartbeat. No evidence of abdominal wall defect or hernia. Last Vital Signs Date Time Temp Pulse Resp B/P (MAP) Pulse Ox O2 Delivery O2 Flow Rate FiO2 07/20/20 17:22 97.0 75 14 116/75 98 Room Air Status: improved Disposition: HOME, SELF-CARE Condition: Improved Scripts Acetaminophen (Tylenol) 325 Mg Tablet 650 MG ORAL Q6H PRN for Prn Pain/Headache/Temp > 101, #20 TAB 0 Refills Prov: Michele Rivera MD 07/20/20 Vit/Iron Fumarate/Fa ( 19 CHEWABLE TABLET) 1 Each Tab.chew 1 EACH PO DAILY, #30 TAB Prov: Michele Rivera MD 07/20/20 Michele Rivera MD Jul 20, 2020 16:11
[2020-07-20] MEDS ORDERED: Acetaminophen 500mg (ES) tab ORAL ONE (16:15)
[2020-07-20 16:32] VITALS: BP 113/74
--- NOTE | 2020-07-20 16:35 | NUR ---
ED Nurse Note:pt. c/o lump on left lower abdomen and abdominal pain, VSS, pt. got abdominal U/S and she is
[2020-07-20 16:48] LABS: APPEARANCE,URINE SLIGHTLY CLOUDY; BILIRUBIN, URINE NEGATIVE (NEGATIVE); GLUCOSE, URINE (UA) NEGATIVE (NEGATIVE); KETONES,URINE 1+ (NEGATIVE); LEUKOCYTE ESTERASE ,URINE NEGATIVE (NEGATIVE); NITRITE,URINE NEGATIVE (NEGATIVE); PH,URINE 5 (4.5-8.0); PROTEIN,URINE 1+ (NEGATIVE); UROBILINOGEN,URINE 1 MG/DL (0.0-1.0)
[2020-07-20 16:49] LABS: COLOR,URINE YELLOW
[2020-07-20] MEDS ORDERED: TYLENOL325 MG ORAL (17:10)
[2020-07-20] MEDS ORDERED: PRENATAL 19 CH1 EACH PO (17:10)
--- NOTE | 2020-07-20 17:15 | NUR ---
ED Nurse Note: Pt cleared by health care Provider for discharge. DC instructions/prescription was given and explained to pt and verbalized understanding of teachings. All medical deviecs such as ID band removed. Pt is AAO x4, ambulatory and left with all personal belongings.
[2020-07-20 17:22] VITALS: BP 116/75
--- NOTE | 2020-07-20 17:26 | Diagnostic Imaging Report ---
EXAM: US Pelvis Transabdominal, Complete CLINICAL HISTORY: ABD PAIN TECHNIQUE: Real-time complete transabdominal pelvic ultrasound with image documentation. COMPARISON: 01/29/2020. FINDINGS: Uterus/cervix: Cervix measures 3.5 cm and is closed. Normal endometrial stripe thickness. No myometrial mass. Right ovary: Nonvisualization of the right ovary. Left ovary: The left ovary measures 3.1 x 2.4 x 2.6 cm. 1.7 cm probable left ovarian corpus luteum cyst. Flow to the left ovary is noted. Normal blood flow. Free fluid: No free fluid. Bladder: Unremarkable as visualized. Wall is normal thickness for degree of distention. Other findings: Single viable intrauterine gestation is noted. Composite gestational age is 40 weeks 2 days. heart rate is 149 bpm. IMPRESSION: 1. Single viable intrauterine gestation corresponding to a composite gestational age of 14 weeks 2 days. 2. heart rate is 149 bpm. 3. Probable left ovarian corpus luteum cyst.
== END 2020-07-20 17:15 | disposition home or self-care (01) ==
LOC: EMR 16:06
DX: O29.6 Failed or difficult intubation for anesthesia during pregnancy (principal); R10.9 Unspecified abdominal pain; Z3A.14 14 weeks gestation of pregnancy
CPT/HCPCS: 76856; 81003; 81025; Z7502; 99284

== ENCOUNTER 2020-08-21 19:17 | Emergency (ER) | payer MEDICAID ==
[~2020-08-21] VITALS: Ht 154.9 cm; Wt 61.2 kg
[~2020-08-21 19:17] MED LIST changes: +PRENATAL 19 CH1 EACH PO
--- NOTE | 2020-08-21 19:30 | NUR ---
ED Nurse Note: Pt ambulated to ED from home c/o bright red vaginal bleeding as well as uterine cramping since last night, pt is 14 weeks with care. pt states "it feels like contractions" Pt is A&Ox4, VSS, pt placed on a conveyor monitor, blood and urine sent to lab
--- NOTE | 2020-08-21 20:01 | NUR ---
ED Nurse Note: Blood and urine sent to the lab
--- NOTE | 2020-08-21 20:11 | NUR ---
ED Nurse Note: US at bedside
[2020-08-21 20:26] LABS: BASOPHILS % (AUTO) 0.7 % (0.0-2.0); EOSINOPHILS % (AUTO) 2.7 % (0.0-3.0); HEMATOCRIT 40.7 % (37.0-47.0); HEMOGLOBIN 13.6 G/DL (12.0-16.0); LYMPHOCYTES % (AUTO) 19.1 % (20.0-45.0); MEAN CORPUSCULAR VOLUME 99 FL (80-99); MONOCYTES % (AUTO) 4.4 % (1.0-10.0); PLATELET COUNT 221 K/UL (150-450); RED BLOOD COUNT 4.11 M/UL (4.20-5.40); RED CELL DISTRIBUTION WIDTH 12.6 % (11.6-14.8); WHITE BLOOD COUNT 12.8 K/UL (4.8-10.8)
[2020-08-21 20:29] LABS: APPEARANCE,URINE SLIGHTLY CLOUDY; BILIRUBIN, URINE NEGATIVE (NEGATIVE); COLOR,URINE PALE YELLOW; GLUCOSE, URINE (UA) NEGATIVE (NEGATIVE); KETONES,URINE NEGATIVE (NEGATIVE); LEUKOCYTE ESTERASE ,URINE NEGATIVE (NEGATIVE); NITRITE,URINE NEGATIVE (NEGATIVE); PH,URINE 6 (4.5-8.0); PROTEIN,URINE NEGATIVE (NEGATIVE); UROBILINOGEN,URINE NORMAL MG/DL (0.0-1.0)
[2020-08-21 20:35] LABS: ANION GAP 9 mmol/L (5-15); BLOOD UREA NITROGEN 7 mg/dL (7-18); CALCIUM 8.5 MG/DL (8.5-10.1); CARBON DIOXIDE 25 MMOL/L (21-32); CHLORIDE 101 MMOL/L (98-107); CREATININE 0.8 MG/DL (0.55-1.30); POTASSIUM 3.4 MMOL/L (3.5-5.1); SODIUM 135 MMOL/L (136-145)
[2020-08-21 20:39] LABS: ALANINE AMINOTRANSFERASE 12 U/L (12-78); ALBUMIN 3.6 G/DL (3.4-5.0); ALBUMIN/GLOBULIN RATIO 0.8 (1.0-2.7); ALKALINE PHOSPHATASE 52 U/L (46-116); ASPARTATE AMINO TRANSFERASE 12 U/L (15-37); BILIRUBIN,TOTAL 0.4 MG/DL (0.2-1.0); INR 0.9 (0.9-1.1)
--- NOTE | 2020-08-21 20:45 | Diagnostic Imaging Report ---
EXAM: US First Trimester , Transabdominal and Transvaginal CLINICAL HISTORY: PAIN. Cramping and bleeding. TECHNIQUE: Real-time transabdominal and transvaginal obstetrical ultrasound of the maternal pelvis and a first trimester with image documentation. Transvaginal imaging was used for better evaluation of the fetus and adnexa. COMPARISON: Compared to the OB ultrasound performed on 07/20/20. FINDINGS: Gestation: No evidence for intrauterine . An intrauterine was seen on the prior exam. The findings are consistent with a failed intrauterine . Placenta/amniotic fluid: Not visualized. Uterus/cervix: The endometrial stripe measures 8 mm The uterus measures 16.6 x 9.2 x 9.3 cm. No myometrial mass. Ovaries: The ovaries are not visualized. Free fluid: No evidence for free fluid or adnexal mass. IMPRESSION: No evidence for intrauterine . An intrauterine was seen on the prior exam. The findings are consistent with a failed intrauterine . <MYCVCSECTION> Communications: 08/21/20 20:50 Verify Receipt Verified receipt with Sunil PHILLIPS on 08/21 20:49 (-08:00)
--- NOTE | 2020-08-21 20:47 | Emergency Room Report ---
History of Present Illness General Chief Complaint: Complications Source: Patient Present Illness HPI Is a 39-year-old female presents for increased vaginal bleeding. Prior history of approximately 14 weeks by ultrasound. Multiple prior pregnancies in the past. Had not been having any vomiting or diarrhea. Reports having passage of large amount of clot as well as tissue. Reports having heavy bleeding. Bleeding occurred approximate 1 hour prior to arrival. Allergies: Coded Allergies: No Known Allergies (Unverified , 06/25/17) COVID-19 Screening Contact w/high risk pt: No Recent Travel to affected area: No Experienced COVID-19 symptoms?: No COVID-19 Testing performed FISCAL MANAGER: No Patient History Past Medical History: see triage record Now: Yes : 11 Para: 10 Reviewed Nursing Documentation: PMH: Agreed; PSxH: Agreed Nursing Documentation-PMH Hx Asthma: Yes Review of Systems All Other Systems: negative except mentioned in HPI Physical Exam Vital Signs Date Time Temp Pulse Resp B/P (MAP) Pulse Ox O2 Delivery O2 Flow Rate FiO2 08/21/20 19:25 99.1 98 18 134/90 (105) 98 Room Air Sp02 EP Interpretation: reviewed, normal General Appearance: normal inspection, well appearing, no apparent distress, alert, GCS 15 Head: atraumatic ENT: normal ENT inspection, hearing grossly normal, normal voice Neck: normal inspection, full range of motion, supple, no bony tend Respiratory: normal inspection, lungs clear, normal breath sounds, no respiratory distress, no retraction, no wheezing Cardiovascular #1: regular rate, rhythm, no edema Gastrointestinal: normal inspection, normal bowel sounds, soft, no guarding, no hernia, other - Uterus enlarged Genitourinary: no CVA tenderness, other - os open 2 cm minimal bleeding noted Musculoskeletal: normal inspection, back normal, normal range of motion Neurologic: alert, motor strength/tone normal, mammography technologist III-XII nml as tested, oriented x3, responsive, speech normal, normal inspection Psychiatric: normal inspection, judgement/insight normal, mood/affect normal Medical Decision Making Diagnostic Impression: Primary Impression: Complete ER Course Patient presented for vaginal bleeding. Differential diagnosis includes not limited to threatened , completed , anemia among others. Because of complexity of patient's case laboratory tests and imaging studies were ordered. Patient had previous 14 pregnancies ultrasound. Pelvic ultrasound showed no evidence of intrauterine . Patient does report having passed a large clot at home. Does not appear to have any evidence of retained products of conception or active bleeding. Patient was informed of ultrasound findings advised to follow-up with Dr Rickie Landrum Who is the patient's COMPENSATION SUPERVISOR. Patient was advised to return if worse. This medical record is generated with [employer] rn neurology software. There may be some rn neurology discrepancies related to use of this software Labs Test 08/21/20 20:00 White Blood Count 12.8 K/UL (4.8-10.8) Red Blood Count 4.11 M/UL (4.20-5.40) Hemoglobin 13.6 G/DL (12.0-16.0) Hematocrit 40.7 % (37.0-47.0) Mean Corpuscular Volume 99 FL (80-99) Mean Corpuscular Hemoglobin 33.0 PG (27.0-31.0) Mean Corpuscular Hemoglobin Concent 33.3 G/DL (32.0-36.0) Red Cell Distribution Width 12.6 % (11.6-14.8) Platelet Count 221 K/UL (150-450) Mean Platelet Volume 6.9 FL (6.5-10.1) Neutrophils (%) (Auto) 73.0 % (45.0-75.0) Lymphocytes (%) (Auto) 19.1 % (20.0-45.0) Monocytes (%) (Auto) 4.4 % (1.0-10.0) Eosinophils (%) (Auto) 2.7 % (0.0-3.0) Basophils (%) (Auto) 0.7 % (0.0-2.0) Prothrombin Time 9.8 SEC (9.30-11.50) Prothromb Time International Ratio 0.9 (0.9-1.1) Activated Partial Thromboplast Time 23 SEC (23-33) Urine Color Pale yellow Urine Appearance Slightly cloudy Urine pH 6 (4.5-8.0) Urine Specific [place] 1.010 (1.005-1.035) Urine Protein Negative (NEGATIVE) Urine Glucose (UA) Negative (NEGATIVE) Urine Ketones Negative (NEGATIVE) Urine Blood 5+ (NEGATIVE) Urine Nitrite Negative (NEGATIVE) Urine Bilirubin Negative (NEGATIVE) Urine Urobilinogen Normal MG/DL (0.0-1.0) Urine Leukocyte Esterase Negative (NEGATIVE) Urine RBC Tntc /HPF (0 - 2) Urine WBC 0-2 /HPF (0 - 2) Urine Squamous Epithelial Cells Few /LPF (NONE/OCC) Urine Bacteria Few /HPF (NONE) Sodium Level 135 MMOL/L (136-145) Potassium Level 3.4 MMOL/L (3.5-5.1) Chloride Level 101 MMOL/L (98-107) Carbon Dioxide Level 25 MMOL/L (21-32) Anion Gap 9 mmol/L (5-15) Blood Urea Nitrogen 7 mg/dL (7-18) Creatinine 0.8 MG/DL (0.55-1.30) Estimat Glomerular Filtration Rate > 60 mL/min (>60) Glucose Level 115 MG/DL (74-106) Calcium Level 8.5 MG/DL (8.5-10.1) Total Bilirubin 0.4 MG/DL (0.2-1.0) Aspartate Amino Transf (AST/SGOT) 12 U/L (15-37) Alanine Aminotransferase (ALT/SGPT) 12 U/L (12-78) Alkaline Phosphatase 52 U/L (46-116) Total Protein 7.9 G/DL (6.4-8.2) Albumin 3.6 G/DL (3.4-5.0) Globulin 4.3 g/dL Albumin/Globulin Ratio 0.8 (1.0-2.7) Lipase 164 U/L (73-393) Human Chorionic Gonadotropin, Quant 41052 mIU/mL (1-6) Last Vital Signs Date Time Temp Pulse Resp B/P (MAP) Pulse Ox O2 Delivery O2 Flow Rate FiO2 08/21/20 19:25 99.1 98 18 134/90 (105) 98 Room Air Status: improved Disposition: HOME, SELF-CARE Condition: Stable Referrals: NON PHYSICIAN (PCP) Oscar Barber MD Aug 21, 2020 20:47
[2020-08-21 21:30] VITALS: BP 134/90
--- NOTE | 2020-08-21 21:30 | NUR ---
ER DISCHARGE NOTE: Patient is cleared to be discharged per ERMD, pt is aox4, on room air, with stable vital signs. pt was given dc instructions, pt was able to verbalize understanding, pt id band and iv site removed without complications. pt is able to ambulate with steady gait. pt took all belongings.
== END 2020-08-21 21:30 | disposition home or self-care (01) ==
LOC: EMR 20:10
DX: O03.9 Complete or unspecified spontaneous abortion without complication (principal); J45.909 Unspecified asthma, uncomplicated
CPT/HCPCS: 36415; 76801; 76817; 80053; 81003; 83690; 84702; 85025; 85610; 85730; 86850; 86900; 86901; Z7502; 99284